=== PATIENT | female | born 1950 | race Two or more races ===

== ENCOUNTER 2017-04-10 22:58 | Emergency (ER) | payer MEDICAID ==
[~2017-04-10] VITALS: Ht 162.6 cm; Wt 70.3 kg
[2017-04-11 00:20] VITALS: BP 191/88
[2017-04-11] MEDS ORDERED: diphenhdrAMINE HCL 25 MG CAP PO ONE ×2 (00:22→00:30)
[2017-04-11] MEDS ORDERED: cloNIDine HCL 0.1 MG TAB ONE (00:22)
[2017-04-11] MEDS ORDERED: cloNIDine HCL 0.1 MG TAB PO ONE (00:30)
== END 2017-04-11 01:30 | disposition left against medical advice (07) ==
LOC: ER 23:00
DX: R21 Rash and other nonspecific skin eruption (principal); Z53.21 Procedure and treatment not carried out due to patient leaving prior to being seen by health care provider